=== PATIENT | male | born 1970 | race Caucasian/White ===

== ENCOUNTER 2018-02-05 00:41 | Outpatient (CLI) | payer OTHER, SELFPAY ==
--- NOTE | 2018-02-05 11:50 | DI.US_ITS ---
SYMPTOMS/DIAGNOSIS: LOCALIZED SWELLING, LEFT LOWER LEG, R22.42 LEFT LOWER EXTREMITY ULTRASOUND: The deep veins of the left lower extremity show normal compression, augmentation and color flow. No evidence of a deep venous thrombus is seen. The visualized portions of the greater saphenous vein are patent with normal flow and compression. There is no evidence of a Mitchell's cyst. There is edema seen in the lower extremity. Varicose veins are also noted. The veins show compressibility and color flow. There is a 2.7 x 0.7 x 3.0 cm benign-appearing lymph node in the left inguinal region. IMPRESSION: No evidence of a left lower extremity DVT, superficial thrombophlebitis or Mitchell's cyst.
== END 2018-02-05 01:01 ==
PROVIDERS: PCP Surgery; Visit Provider Nurse Practitioner
DX: R22.42 Localized swelling, mass and lump, left lower limb (principal)
CPT/HCPCS: 93971

== ENCOUNTER 2018-12-19 15:42 | Outpatient (CLI) | payer OTHER, SELFPAY ==
--- NOTE | 2018-12-19 12:20 | DI.US_ITS ---
SYMPTOM/DIAGNOSIS: DVT, VENOUS INSUFFICIENCY, I87.2, THROMBOSIS OF LEG, I82.90, SWELLING DUPLEX VENOUS ULTRASOUND RIGHT LOWER EXTREMITY: Duplex evaluation of the deep venous system of the right lower extremity was performed according to the usual protocol. There is no evidence of deep venous thrombosis. Note is made of superficial thrombus in veins of the calf medially and posteriorly. CONCLUSION: No evidence of DVT.
== END 2018-12-19 16:02 ==
PROVIDERS: PCP Internal Medicine; Visit Provider Nurse Practitioner Family
DX: I87.2 Venous insufficiency (chronic) (peripheral) (principal); I82.812 Embolism and thrombosis of superficial veins of left lower extremity
CPT/HCPCS: 93971

== ENCOUNTER 2020-02-16 14:06 | Outpatient (REF) | payer OTHER, SELFPAY ==
[2020-02-21 21:20] LABS: Patient Race White; SARS-CoV-2 RNA Undetected (Undetected); SARS-CoV-2 Specimen Source Nasal
== END 2020-02-16 14:26 ==
LOC: NCHCN 14:06
PROVIDERS: PCP Internal Medicine; Visit Provider Nurse Practitioner Family
DX: Z20.828 Contact with and (suspected) exposure to other viral communicable diseases (principal)
CPT/HCPCS: U0003

== ENCOUNTER 2020-05-03 12:58 | Outpatient (REF) | payer OTHER, SELFPAY ==
[2020-05-03 20:43] LABS: Abs Immature Grans 0.03 10^3/uL (0.0-0.06); Absolute Basophil Count 0.05 10^3/uL (0.0-0.2); Absolute Eosinophil Count 0.11 10^3/uL (0.0-0.7); Absolute Lymphocyte Count 1.63 10^3/uL (1.2-3.4); Absolute Monocyte Count 0.62 10^3/uL (0.1-0.8); Absolute Neutrophil Count 6.55 10^3/uL (1.2-6.7); Basophils % 0.6; Eosinophils % 1.2; HCT 45.2 % (40.0-50.0); HGB 14.5 g/dL (13.5-17.5); Immature Grans % 0.3; Lymphocytes % 18.1; MCH 27.9 pg (27.0-33.0); MCHC 32.1 % (32.0-36.0); MCV 87.1 fL (80-95); MPV 10.5 fL (8.0-11.0); Monocytes % 6.9; Neutrophils % 72.9; Nucleated RBC 0 %; Platelet Count 247 10^3/uL (130-400); RBC 5.19 10^6/uL (4.36-5.78); RDW 13.3 % (11.8-14.1); RDW-SD 42.5 fL; WBC 8.99 10^3/uL (4.4-10.8)
[2020-05-03 20:50] LABS: Anion Gap 8.1 mmol/L (3-11); BUN 13 mg/dL (7-18); CO2 26.9 mmol/L (21.0-32.0); CREATININE 1.03 mg/dL (0.70-1.30); Calcium 9.3 mg/dL (8.5-10.1); Chloride 100 mmol/L (98-107); Glucose 80 mg/dL (74-106); Potassium 4.2 mmol/L (3.5-5.1); Sodium 135 mmol/L (136-145)
== END 2020-05-03 13:18 ==
LOC: NCHCN 12:58
PROVIDERS: PCP Internal Medicine; Visit Provider Family Medicine
DX: R22.42 Localized swelling, mass and lump, left lower limb (principal)
CPT/HCPCS: 80048; 85025

== ENCOUNTER 2020-05-05 01:44 | Outpatient (CLI) | payer OTHER, SELFPAY ==
--- NOTE | 2020-05-05 | DI.US_ITS ---
EXAM: US LOWER EXTREMITY VENOUS LT CLINICAL HISTORY: LOCALIZED SWELLING LT LEG, R22.42, ? DVT. TECHNIQUE: Lower extremity venous ultrasound performed using grayscale, color-flow, and spectral Do ppler analysis. COMPARISON: No exams were available for comparison FINDINGS: The common femoral, femoral and popliteal veins demonstrate normal compressibility, augmentation, and color Doppler. The posterior tibial veins are patent. There is no thrombus extending throughout the greater saphenous vein and extending into multiple branches. The thrombus measures less than 2 cent imeters from the saphenofemoral junction.. No hematoma or Mitchell's cyst is seen. IMPRESSION: Greater saphenous thrombosis. No evidence of deep venous thrombosis.. DATA REPOSITORY:
== END 2020-05-05 02:04 ==
PROVIDERS: PCP Internal Medicine; Visit Provider Family Medicine
DX: I82.812 Embolism and thrombosis of superficial veins of left lower extremity (principal)
CPT/HCPCS: 93971

== ENCOUNTER 2020-05-11 08:49 | Outpatient (CLI) | payer OTHER, SELFPAY ==
[2020-05-11 17:45] LABS: PSA, Diagnostic 0.3 ng/mL (0.0-3.5)
== END 2020-05-11 08:50 | disposition home or self-care (01) ==
LOC: LBO 08:53
PROVIDERS: PCP Internal Medicine; Visit Provider Urology
DX: R35.0 Frequency of micturition (principal); N52.9 Male erectile dysfunction, unspecified
CPT/HCPCS: 36415; 84153

== ENCOUNTER 2021-07-01 20:30 | Outpatient (REF) | payer OTHER, SELFPAY | END 2021-07-01 20:31 | disposition home or self-care (01) | LOC: LBN 20:30 | PROVIDERS: PCP Internal Medicine; Visit Provider Urology | DX: N39.0 Urinary tract infection, site not specified (principal) | CPT/HCPCS: 87086 ==

== ENCOUNTER 2022-08-16 02:14 | Outpatient (CLI) | payer OTHER, SELFPAY ==
[2022-08-16 09:09] LABS: Abs Immature Grans 0.01 10^3/uL (0.0-0.06); Absolute Basophil Count 0.04 10^3/uL (0.0-0.2); Absolute Eosinophil Count 0.11 10^3/uL (0.0-0.7); Absolute Lymphocyte Count 1.58 10^3/uL (1.2-3.4); Absolute Monocyte Count 0.44 10^3/uL (0.1-0.8); Absolute Neutrophil Count 4.25 10^3/uL (1.2-6.7); Basophils % 0.6; Eosinophils % 1.7; HCT 47.3 % (40.0-50.0); HGB 15.5 g/dL (13.5-17.5); Immature Grans % 0.2; Lymphocytes % 24.6; MCH 27.4 pg (27.0-33.0); MCHC 32.8 % (32.0-36.0); MCV 84 fL (80-95); MPV 9.3 fL (8.0-11.0); Monocytes % 6.8; Neutrophils % 66.1; Platelet Count 200 10^3/uL (130-400); RBC 5.66 10^6/uL (4.36-5.78); RDW 13.9 % (11.8-14.1); RDW-SD 42.3 fL; WBC 6.43 10^3/uL (4.4-10.8)
[2022-08-16 10:19] LABS: ALT 34 U/L (16-63); AST 19 U/L (15-37); Albumin 3.9 g/dL (3.4-5.0); Alkaline Phosphatase 81 U/L (46-116); BUN 21 mg/dL (7-18); Bilirubin, Total 0.4 mg/dL (0.2-1.0); CREATININE 1.1 mg/dL (0.70-1.30); Calcium 9.3 mg/dL (8.5-10.1); Calculated LDL 132 mg/dL (<100); Chloride 100 mmol/L (98-107); Cholesterol 197 mg/dL (<200); Estimated GFR 80.27 (mL/min/1.73m2); Glucose 96 mg/dL (74-106); HDL Cholesterol 49 mg/dL (40-60); Potassium 4.3 mmol/L (3.5-5.1); Sodium 137 mmol/L (136-145); Total Protein 8.4 g/dL (6.4-8.2); Triglyceride 84 mg/dL (<150)
== END 2022-08-16 02:15 | disposition home or self-care (01) ==
LOC: LBO 02:14
PROVIDERS: PCP Internal Medicine; Visit Provider Family Medicine
DX: Z00.00 Encounter for general adult medical examination without abnormal findings (principal); R03.0 Elevated blood-pressure reading, without diagnosis of hypertension; E66.9 Obesity, unspecified; M79.674 Pain in right toe(s)
CPT/HCPCS: 36415; 80053; 80061; 84550; 85025

== ENCOUNTER 2023-05-14 07:00 | Day surgery (SDC) | payer OTHER, SELFPAY ==
[2023-05-14 07:20] VITALS: BP 139/84; PULSE 84; RESP 16; TEMP 36.5; O2SAT 99
[2023-05-14] MEDS: Lactated Ringers 1,000 ML 80 ML IV (07:58)
--- NOTE | 2023-05-14 08:43 | HPE_ITS ---
Date of service: 05/14/23 Time of Service: 08:43 Assessment and Plan Assessment and plan (1) Meatal stenosis: Status: Acute Assessment and plan: We will plan to do cystoscopy and repeat urethral dilation. I would expect to leave an indwelling catheter short term following the procedure. History of Present Illness History of Present Illness Chief Complaint: Meatal stenosis Narrative: This is a 52 year old man who has a history of meatal stenosis. He has responded to previous dilations with symptoms controlled for 1 to 2 years after dilation. He now has progressive worsening of his obstructive symptoms. He presents for repeat urethral dilation. Review of Systems Narrative: No fevers or chills No vision change or dysphasia No diabetes or thyroid dysfunction No shortness of breath, cough or hemoptysis No chest pain or palpitations No nausea, vomiting, hepatitis, ulcers, jaundice, diarrhea or constipation No seizures, strokes or peripheral neuropathy No bleeding disorders or anemia No gout PFSH All Active Problems BXO (balanitis xerotica obliterans) (Acute 02/21/16) Frequency of micturition (Acute 02/21/16) Meatal stenosis (Acute 02/21/16) Surgical History (Updated 05/10/23 @ 14:57 by Martin Damon) Hx of vascular surgery Pt. states vascular surgery on veins in leg to reroute blood flow in leg [place] teeth removed Social History Smoking/Tobacco Use Status: Never Smoking risk assessment performed?: Yes Alcohol Intake: current Alcohol Intake frequency: a few times a week Drug use: Never Substance use type: does not use Housing: house Do you feel safe at home: Yes Do you feel safe in your relationship?: Yes Meds Allergies and Home Medications Allergies Allergy/AdvReac Type Severity Reaction Status Date / Time No Known Drug Allergies Allergy Verified 05/14/23 07:19 Home Medications Medication Instructions Recorded Confirmed Type fluticasone propionate 0.05 % 1 applic topical DAILY PRN skin 01/13/22 05/10/23 Rx topical cream irritation #30 grams tadalafil 5 mg tablet (Cialis) 5 mg PO DAILY #90 tab-caps 07/21/22 05/10/23 Rx Exam Const General: cooperative Resp Effort & Inspection: normal respiratory effort Auscultation: clear to auscultation bilaterally Cardio Rate: regular rate Rhythm: regular rhythm GI Inspection: obesity Palpation: soft Neuro General: patient alert, patient awake and patient oriented x3 Results Last Vital Signs Temp 36.5 C 05/14/23 07:20 Pulse 84 05/14/23 07:20 Resp 16 05/14/23 07:20 BP 139/84 05/14/23 07:20 Pulse Ox 99 05/14/23 07:20 Time Spent Time spent with Patient: <40 minutes Time was spent: other
--- NOTE | 2023-05-14 08:47 | W.ANESPRE ---
General Info Date of Service Date Performed: 05/14/23 Height: 6 ft Weight: 161.4 kg Body Mass Index (BMI): 48.2 Surgical Procedure: Operation Date: 05/14/23 08:55 Proposed Procedure Side Surgeon p Cystoscopy/Urethral/Meatal Dilation Mike De La Rosa MD Pre-Op Diagnosis Post-Op Diagnosis Meatal stenosis BXO (balanitis xerotica obliterans) Meds Allergies and Home Medications Allergies Allergy/AdvReac Type Severity Reaction Status Date / Time No Known Drug Allergies Allergy Verified 05/14/23 07:19 Home Medication Medication Instructions Recorded fluticasone propionate 0.05 % 1 applic topical DAILY PRN skin 01/13/22 topical cream irritation #30 grams tadalafil 5 mg tablet (Cialis) 5 mg PO DAILY #90 tab-caps 07/21/22 Current Visit Medications: Current Medications Generic Name Dose Route Start Last Admin Trade Name Freq PRN Reason Stop Dose Admin Ringer's Solution 1,000 mls @ 80 mls/hr 05/14/23 06:00 05/14/23 07:58 IV 05/14/23 23:59 80 mls/hr INFUSION DONALDO Administration Cefazolin Sodium/Dextrose 2 gm in 50 mls @ 100 mls/hr 05/14/23 06:00 Ancef Duplex IVPB 05/14/23 23:59 PREOP DONALDO IV Miscellaneous Supplies 1 each 05/14/23 06:00 Iv Access IV 05/14/23 23:59 DIRECTED DONALDO Sodium Chloride 0 ml 05/14/23 06:00 Normal Saline Flush 10 Ml Syr IV 05/14/23 23:59 PRN PRN Sodium Chloride 0 ml 05/14/23 06:00 Normal Saline 10 Ml Vial IJ 05/14/23 23:59 DIRECTED PRN Sterile Water 0 ml 05/14/23 06:00 Water,Injection,Sterile 10 Ml Vial IJ 05/14/23 23:59 DIRECTED PRN PFSH Active Problems Active Problems: Problem Status Onset Code BXO (balanitis xerotica obliterans) 02/21/16 N48.0 Frequency of micturition 02/21/16 R35.0 Meatal stenosis 02/21/16 Surgical History Surgical History (Updated 05/10/23 @ 14:57 by Martin Damon) Hx of vascular surgery Pt. states vascular surgery on veins in leg to reroute blood flow in leg [place] teeth removed Tobacco Smoking/Tobacco Use Status: Never Alcohol Alcohol Intake: current Alcohol intake frequency: a few times a week Substance Use Substance use: Never Substance use type: does not use Vital Signs and Lab Results Vital Signs Most Recent Vital Signs in EMR: Most Recent Vital Signs Temp Pulse Resp BP Pulse Ox 36.5 C 84 16 139/84 99 05/14/23 07:20 05/14/23 07:20 05/14/23 07:20 05/14/23 07:20 05/14/23 07:20 Lab Results Blood Type / Crossmatch: No Data to Display Complete Blood Count: No Data to Display Complete Metabolic Panel: No Data to Display Liver Function Panel: No Data to Display Coagulation Panel: No Data to Display Cardiac Panel: No Data to Display Arterial Blood Gas: No Data to Display Venous Blood Gas: No Data to Display Pancreas Panel: No Data to Display Thyroid Panel: No Data to Display Infectious Disease: No Data to Display Blood Cultures: No Data to Display Toxicology Panel: No Data to Display Anesthesia Assessment and Plan Anesthesia History Personal History: No History of Anesthesia Complications Family History: No Family History of Anesthesia Complications Exercise Tolerance Exercise Tolerance: Metabolic Equivalents>4 Pertinent Negatives Pertinent Negatives: No Symptoms of GERD, No Major Cardiovascular Symptoms or Complaints, No Major Pulmonary Symptoms or Complaints and No History of CVA/TIA Cardiac & Pulmonary Exam Cardiac Exam: Normal S1/S2 Heart Sounds Pulmonary Exam: Clear Bilateral Breath Sounds Implantable Cardiac Device Does patient have a Pacemaker or an ICD?: No Airway Exam Known Difficult Airway: No Mallampati Class: 3 Mouth Opening: Normal (> 3cm) Thyromental Distance: Greater than 3 cm Neck Range of Motion: Full ROM Neck Circumference: Thick Teeth Condition: Normal Dentition ASA Classification ASA Score: ASA 3 Emergency Case?: No NPO Status NPO Status: NPO Clears >2 hours, Solids >8 hours Anesthesia Plan Resuscitation Status: Full Code Anesthesia Technique: General Anesthesia Airway Planned: Natural Airway Monitors Used: Standard Monitors
[2023-05-14 08:49] VITALS: BMI 48.2
[2023-05-14] MEDS: ceFAZolin 2 GM/50 ML BAG IVPB (09:23)
[2023-05-14] MEDS: Lidocaine 2% Jelly 6 ML SYR (09:44)
--- NOTE | 2023-05-14 09:50 | W.PM.DSUDISC ---
Date of service: 05/14/23 Time of Service: 09:51 Discharge Plan Disposition Condition: Stable Discharge Details Reason For Visit: urethral stricture Attending Provider: Mike De La Rosa Primary Care Provider: Juan Antonio Cochran Home Meds and New Rx's Prescriptions: No Action fluticasone propionate 0.05 % cream 1 applic Topical DAILY PRN (Reason: skin irritation) Qty: 30 12RF Rx Instructions: use thin floor layer apprentice to once a day tadalafil [Cialis] 5 mg tablet 5 mg PO DAILY Qty: 90 4RF Discharge Instructions Additional Instructions: weems to gravity (leg bag or large drainage bag - patient choice) follow up 1 week for catheter removal Activity:: Activity as Tolerated Shower/Bathe:: 24 hours Diet:: As Tolerated DS: Diagnosis Discharge Diagnosis (1) Meatal stenosis: Status: Acute
--- NOTE | 2023-05-14 09:54 | ROE_ITS ---
Date of service: 05/14/23 Time of Service: 09:54 Operative Note Operative Note DATE OF PROCEDURE: 05/14/23 PRE-OP DIAGNOSIS: meatal stenosis/urethral stricture POST-OP DIAGNOSIS: same PROCEDURE: cystoscopy with urethral dilation SURGEON: Mike De La Rosa ANESTHESIA TYPE: Local By Surgeon and General:No Airway Refer to Anesthesia Record ESTIMATED BLOOD LOSS: 10 PATHOLOGY: none sent COMPLICATIONS: None Patient was transported to: same day Implants: 18 [place] councill tipped weems catheter Indications: This is a 52-year-old gentleman who has a history of balanitis xerotica obliterans and meatal stenosis. He has been treated with urethral dilations and topical steroid cream. His symptoms have progressed and he is finding it difficult to void. He presents for cystoscopy and urethral dilation Findings: dense distal urethral stricture Procedure Description: The patient was given preoperative IV antibiotics and brought to the operating room on 05/14/2019 follower. After successful induction of general anesthesia, he was placed in the dorsal lithotomy position. His genitalia was prepped and draped. 2% Xylocaine jelly was instilled into the urethra to act as a local anesthetic. The urethral meatus was only pinpoint an opening. I passed a guidewire through the lumen of the urethra and advanced the wire. I then dilated the distal urethra over the wire. We used fascial dilators and dilated to a size 22 Ben[place]. I attempted to pass a 22 [place] cystoscope through the urethra into the bladder but I was not successful. I was however able to pass a 17 [place]inese scope through the urethra into the bladder. No proximal urethral strictures were identified. The distal urethral stricture measured approximately 3 cm in length. I removed the cystoscope and passed an 18 [place] tip catheter over the indwelling wire. Once the catheter was passed into the bladder, I inflated the balloon with 10 cc of sterile water and removed the guidewire. The catheter was hooked to gravity drainage. The patient tolerated the procedure well with no complications.
[2023-05-14 09:55] VITALS: BP 149/96; PULSE 82; RESP 16; TEMP 36.3; O2SAT 99
--- NOTE | 2023-05-14 09:59 | W.ANESPOSTOP ---
Postoperative Evaluation Date, Time and Location Date Performed: 05/14/23 Time Performed: 09:56 Patient Location: Day Surgery Unit Vital Signs Most Recent Imported Vital Signs: Most Recent Vital Signs Temp Pulse Resp BP Pulse Ox 36.3 C L 82 16 149/96 H 99 05/14/23 09:55 05/14/23 09:55 05/14/23 09:55 05/14/23 09:55 05/14/23 09:55 Pain Score Most Recent Pain Score: Most Recent Pain Score Pain Level 0 05/14/23 07:20 Assessment Mental Status: Awake (Alert & Oriented to Patient Baseline) Airway and Respiratory Function: Patent airway with normal (patient baseline) respiratory exam Cardiovascular Function: Hemodynamically Stable Hydration Status: Adequately Hydrated Nausea & Vomiting: No Nausea or Vomiting Pain: Pt. Denies Any Pain Peripheral Nerve Block: Patient did not receive a nerve block
[2023-05-14 10:30] VITALS: BP 138/90; PULSE 70; RESP 16; TEMP 36.5; O2SAT 99
[2023-05-14] MEDS: traMADol 50 MG TAB PO (10:40)
== END 2023-05-14 11:15 | disposition home or self-care (01) ==
PROVIDERS: PCP Internal Medicine; Visit Provider Urology
PROC: 0T7D8ZZ Dilation of Urethra, Via Natural or Artificial Opening Endoscopic (ICD-10-PCS; CPT 52281; principal; 2023-05-14 08:45)
DX: N35.811 Other urethral stricture, male, meatal (principal); N48.0 Leukoplakia of penis
CPT/HCPCS: 52281; J0690; J1100; J1885; J2001; J2405; J2704